=== PATIENT | male | born 1985 | race Two or more races ===

== ENCOUNTER 2025-04-13 13:56 | Emergency (ER) | payer SELFPAY ==
[~2025-04-13] VITALS: Ht 172.7 cm; Wt 55.3 kg
[2025-04-13] MEDS ORDERED: ACETAMINOPHEN 325 MG TABLET ONE (14:26)
[2025-04-13] MEDS: ACETAMINOPHEN 325 MG TABLET PO ONE (14:29)
[2025-04-13 15:35] VITALS: BP 128/79; TEMP 98.5; O2SAT 98
== END 2025-04-13 15:37 | disposition home or self-care (01) ==
LOC: ER 13:56
DX: S92.422A Displaced fracture of distal phalanx of left great toe, initial encounter for closed fracture (principal); Z60.2 Problems related to living alone; W22.8XXA Striking against or struck by other objects, initial encounter; Y93.89 Activity, other specified; Y92.89 Other specified places as the place of occurrence of the external cause; Y99.8 Other external cause status
CPT/HCPCS: 73630-TC